=== PATIENT | female | born 1985 | race Caucasian/White ===

== ENCOUNTER 2020-02-10 14:47 | Emergency (ER) | payer OTHER, SELFPAY ==
[~2020-02-10] VITALS: Ht 160 cm; Wt 73.9 kg
[2020-02-10 14:53] VITALS: BP 123/96
[2020-02-10] MEDS ORDERED: NACL 0.9% 1,000 ML IV ONE (15:10)
[2020-02-10] MEDS ORDERED: ONDANSETRON 4 MG/2 ML VIAL IVP ONE (15:15)
[2020-02-10] MEDS ORDERED: MORPHINE SULFATE 4 MG/ML SYR IVP ONE ×2 (15:15→16:25)
[2020-02-10 15:35] LABS: BASOPHILS % (AUTO) 0.2 % (0.0-2.0); EOSINOPHILS % (AUTO) 0.1 % (0.0-4.0); HEMATOCRIT 40.3 % (36-48); HEMOGLOBIN 13.7 g/dL (12.0-16.0); LYMPHOCYTES # (AUTO) 0.9 K/uL (2.5-16.5); LYMPHOCYTES % (AUTO) 7.8 % (20.5-51.1); MEAN CORPUSCULAR HEMOGLOBIN 31 pg (27-31); MEAN CORPUSCULAR HGB CONC 34 g/dL (33-37); MEAN CORPUSCULAR VOLUME 92.3 fL (80-94); MONOCYTES # (AUTO) 0.7 K/uL (0.8-1.0); MONOCYTES % (AUTO) 5.9 % (1.7-9.3); NEUTROPHILS # (AUTO) 9.6 K/uL (1.8-7.7); PLATELET COUNT (AUTO) 248 K/uL (140-450); RED BLOOD CELL COUNT(AUTO) 4.37 MIL/uL (4.20-5.40); RED CELL DISTRIBUTION WIDTH 12.7 % (11.6-13.7); WHITE BLOOD COUNT (AUTO) 11.1 K/uL (4.8-10.8)
[2020-02-10 15:36] LABS: APPEARANCE,URINE SL CLOUDY (CLEAR); BILIRUBIN,URINE 2+ (NEGATIVE); BLOOD, URINE TRACE-I (NEGATIVE); COLOR,URINE ORANGE (YELLOW); LEUKOCYTE ESTERASE ,URINE NEGATIVE (NEGATIVE); NITRITE, URINE NEGATIVE (NEGATIVE); UGLUCOSE NEGATIVE (NEGATIVE)
[2020-02-10 16:00] LABS: ANION GAP 15.5 (8-16); CARBON DIOXIDE 24.3 mmol/L (21-32); CREATININE 0.8 mg/dL (0.6-1.3); POTASSIUM 3.8 mmol/L (3.5-5.1); TOTAL BILIRUBIN 1.7 mg/dL (0.0-1.0)
[2020-02-10] MEDS ORDERED: MORPHINE SULFATE 4 MG/ML SYR ONE (16:22)
[2020-02-10 16:42] LABS: PROTHROMBIN TIME 10.4 secs (10.8-13.4)
[2020-02-10] MEDS ORDERED: NACL 0.9% 500 ML IV ONE (17:40)
[2020-02-10 19:05] VITALS: BP 133/71
== END 2020-02-10 19:06 | disposition home or self-care (01) ==
LOC: MED 14:47 → EEVIPCON 14:47 → MED 19:06
DX: K86.1 Other chronic pancreatitis (principal); E86.0 Dehydration; R11.2 Nausea with vomiting, unspecified; Z90.49 Acquired absence of other specified parts of digestive tract; Z98.890 Other specified postprocedural states
CPT/HCPCS: 36415; 74177; 80053; 81003; 83690; 85025; 85610; 96361; 96374; 96375; 96376; 99284; J2270; J2405; J7030; Q9967; 81025

== ENCOUNTER 2020-02-14 15:42 | Inpatient (IN) | payer OTHER, SELFPAY ==
[~2020-02-14] VITALS: Ht 162.6 cm; Wt 74.4 kg
[~2020-02-14 15:42] MED LIST: IBUP-2213 PO
[2020-02-14 15:58] VITALS: BP 131/91
[2020-02-14] MEDS ORDERED: ONDANSETRON 4 MG/2 ML VIAL IVP ONE (16:05)
[2020-02-14] MEDS ORDERED: NACL 0.9% 1,000 ML IV ONE (16:05)
[2020-02-14] MEDS ORDERED: MORPHINE SULFATE 4 MG/ML SYR IVP ONE ×2 (16:05→18:30)
--- NOTE | 2020-02-14 16:10 | NUR ---
PT AMBULATED TO ER BED 07
--- NOTE | 2020-02-14 16:20 | NUR ---
DR DAVIDSON AT BEDSIDE EVALUATING PT.
--- NOTE | 2020-02-14 16:20 | NUR ---
C/O URQ ABD PAIN RADIATING TO UPPER RIGHT BACK 6/10 AND THROBBING ACCOMPANIED BY NAUSEA. PT AWAKE , ALERT, AFIBRILE , AMBULATORY WITH STEADY GAIT ,SCE, CBS BLF . HX: GALLBLADDER REMOVED, PARTIAL NECROTIC PANCREAS REMOVAL 2018 RX: NONE
[2020-02-14 16:31] LABS: BASOPHILS # (AUTO) 0.1 K/uL (0.00-0.22); BASOPHILS % (AUTO) 1.1 % (0.0-2.0); EOSINOPHILS # (AUTO) 0.2 K/uL (0-0.4); EOSINOPHILS % (AUTO) 4.4 % (0.0-4.0); HEMATOCRIT 39.5 % (36-48); HEMOGLOBIN 13.3 g/dL (12.0-16.0); LYMPHOCYTES # (AUTO) 0.8 K/uL (2.5-16.5); LYMPHOCYTES % (AUTO) 14.4 % (20.5-51.1); MEAN CORPUSCULAR HEMOGLOBIN 32 pg (27-31); MEAN CORPUSCULAR HGB CONC 34 g/dL (33-37); MEAN CORPUSCULAR VOLUME 93.6 fL (80-94); MONOCYTES # (AUTO) 0.3 K/uL (0.8-1.0); MONOCYTES % (AUTO) 5.8 % (1.7-9.3); NEUTROPHILS % (AUTO) 74.3 % (42.2-75.2); PLATELET COUNT (AUTO) 324 K/uL (140-450); RED BLOOD CELL COUNT(AUTO) 4.22 MIL/uL (4.20-5.40); RED CELL DISTRIBUTION WIDTH 12.7 % (11.6-13.7); WHITE BLOOD COUNT (AUTO) 5.4 K/uL (4.8-10.8)
--- NOTE | 2020-02-14 16:33 | NUR ---
LABS AT BEDSIDE.
[2020-02-14 16:47] LABS: CARBON DIOXIDE 28.3 mmol/L (21-32); CREATININE 0.8 mg/dL (0.6-1.3); POTASSIUM 3.3 mmol/L (3.5-5.1); TOTAL BILIRUBIN 0.9 mg/dL (0.0-1.0)
--- NOTE | 2020-02-14 17:16 | NUR ---
US AT BEDSIDE.
--- NOTE | 2020-02-14 19:05 | NUR ---
report given to lopez gerard.vs stable pt in bed .side rails up x1 and lock.
--- NOTE | 2020-02-14 19:46 | NUR ---
Dr. Isidro examining patient.
[2020-02-14] MEDS ORDERED: DOCUSATE SODIUM 250 MG GELCAP PO PRN (20:10)
[2020-02-14] MEDS ORDERED: ALBUTEROL 0.083% 2.5 MG/3 ML NEBU INH PRN (20:10)
[2020-02-14] MEDS ORDERED: guaiFENesin DM 200/20 MG-10 ML 10 ML UDC PO PRN (20:10)
[2020-02-14] MEDS ORDERED: cloNIDine 0.1 MG TAB PO PRN (20:10)
[2020-02-14] MEDS ORDERED: ALUMINUM HYD/MAG/SIMETHICONE 30 ML UDC PO PRN (20:10)
[2020-02-14] MEDS ORDERED: LORazepam 2 MG/ML VIAL IVP PRN (20:10)
[2020-02-14] MEDS ORDERED: ACETAMINOPHEN 325 MG TAB PO PRN (20:10)
[2020-02-14] MEDS ORDERED: ZOLPIDEM 5 MG TAB PO PRN (20:10)
[2020-02-14] MEDS ORDERED: MORPHINE SULFATE 2 MG/ML SYR IVP PRN (20:10)
[2020-02-14] MEDS ORDERED: MAGNESIUM OXIDE 400 MG TAB PO PRN (20:10)
[2020-02-14] MEDS ORDERED: ACETAMINOPHEN 650 MG SUPP RC PRN (20:10)
[2020-02-14] MEDS ORDERED: MAG SULF 2000 MG/WATER PREMIX 50 ML IV PRN (20:10)
[2020-02-14] MEDS ORDERED: diphenhydrAMINE 50 MG/ML VIAL IVP PRN (20:10)
[2020-02-14] MEDS ORDERED: IPRATROPIUM 0.02% 0.5 MG/2.5 ML NEBU INH PRN (20:10)
[2020-02-14] MEDS ORDERED: ONDANSETRON 4 MG/2 ML VIAL IVP PRN (20:10)
[2020-02-14] MEDS ORDERED: SODIUM PHOSPHATE 118 ML ENEM RC PRN (20:10)
[2020-02-14] MEDS ORDERED: BISACODYL 10 MG SUPP RC PRN (20:10)
--- NOTE | 2020-02-14 20:25 | NUR ---
Marlin crow in ED - 02/14/20 at 2032 by NAHUN Patient will be admitted to care of DR GUERRERO. Admited to [facility]. Will go to room 119A. Belongings list completed. Report to IWONA FARRIS.
--- NOTE | 2020-02-14 20:25 | NUR ---
Patient will be admitted to care of DR GUERRERO. Admited to [facility]. Will go to room 119A. Belongings list completed. Report to IWONA FARRIS.
--- NOTE | 2020-02-14 20:25 | NUR ---
RECEIVED PATIENT FROM ER VIA WHEELCHAIR IN STABLE CONDITION FOR CONTINUITY OF CARE. AAOX4. RESPIRATIONS EVEN, UNLABORED. SKIN ASSESSMENT COMPLETED. SKIN INTACT. SALINE LOCK TO RIGHT AC 20G PATENT/INTACT. MRSA SCREEN COMPLETED. ORIENTED PATIENT TO ROOM/STAFF AND CALL LIGHT. NO C/O PAIN. NO S/SX ACUTE DISTRESS AT THIS TIME. VITALS STABLE: BP 120/71 HR 85 RR 18 T 98.3 O2SAT 100%. SAFETY PRECAUTIONS IN PLACE. CALL LIGHT WITHIN REACH. WILL CONTINUE TO MONITOR.
[2020-02-14 21:14] VITALS: BP 120/71
--- NOTE | 2020-02-14 22:34 | NUR ---
PATIENT C/O ACHING ABDOMINAL PAIN 04/07. MEDICATED ORDERED. CALL LIGHT WITHIN REACH. WILL CONTINUE TO MONITOR.
--- NOTE | 2020-02-14 23:34 | NUR ---
REASSESSED PAIN LEVEL AT 2/10, TOLERABLE PAIN LEVEL FOR PATIENT. CALL LIGHT WITHIN REACH. WILL CONTINUE TO MONITOR.
--- NOTE | 2020-02-14 23:39 | NUR ---
PATIENT C/O INSOMNIA. MEDICATED ORDERED. PROVIDED LOW STIMULI ENVIRONMENT. PROVIDED EDUCATION REGARDING SLEEP HYGIENE. PATIENT VERBALIZED UNDERSTANDING. CALL LIGHT WITHIN REACH. WILL CONTINUE TO MONITOR.
[2020-02-15] VITALS: BP 105/72
--- NOTE | 2020-02-15 01:15 | NUR ---
MADE ROUNDS. PATIENT ASLEEP AND IN STABLE CONDITION. NO C/O PAIN. NO S/SX ACUTE DISTRESS. CALL LIGHT WITHIN REACH. WILL CONTINUE TO MONITOR.
--- NOTE | 2020-02-15 03:05 | NUR ---
PATIENT IS ASLEEP AND IN STABLE CONDITION. NO C/O PAIN. NO S/SX ACUTE DISTRESS. CALL LIGHT WITHIN REACH. WILL CONTINUE TO MONITOR.
--- NOTE | 2020-02-15 05:27 | NUR ---
PATIENT CONTINUES IN STABLE CONDITION. NO C/O PAIN. NO S/SX ACUTE DISTRESS. CALL LIGHT WITHIN REACH. WILL CONTINUE TO MONITOR.
[2020-02-15] MEDS: HYDROcodone/APAP 5/325 MG 1 TAB TAB PO PRN ×4 (06:12→21:51)
--- NOTE | 2020-02-15 06:12 | NUR ---
PATIENT C/O ACHING ABDOMINAL PAIN 04/07. MEDICATED ORDERED. PROVIDED EDUCATION REGARDING PAIN MANAGEMENT, PATIENT VERBALIZED UNDERSTANDING. CALL LIGHT WITHIN REACH. WILL CONTINUE TO MONITOR.
--- NOTE | 2020-02-15 06:33 | NUR ---
PATIENT HAS BEEN SCREENED AND CATEGORIZED MODERATE NUTRITION RISK. PATIENT WILL BE SEEN WITHIN 3-5 DAYS OF ADMISSION. 02/17/20-02/19/20 DINORA ZAMARRIPA MS, RDN
--- NOTE | 2020-02-15 07:16 | NUR ---
ENDORSED TO AM SHIFT NURSE FOR CONTINUITY OF CARE.
--- NOTE | 2020-02-15 07:16 | NUR ---
RECEIVED PATIENT FROM FOLEY ARTIST NURSE AT BEDSIDE FOR CONTINUITY OF CARE. AAOX4. PT AWAKE AND ALERT, RESPIRATIONS EVEN AND UNLABORED ON ROOM AIR. SKIN INTACT. SALINE LOCK TO RIGHT AC 20G PATENT/INTACT. UPDATED BOARD. PATIENT LAST MEDICATED FOR PAIN AT 0612. PT HAS NO COMPLAINTS AT THIS TIME. VERBALIZED PLAN OF CARE TO PATIENT, SHE VERBALIZED UNDERSTANDING. CALL LIGHT WITHIN REACH. WILL CONTINUE TO MONITOR.
[2020-02-15 07:32] LABS: ALBUMIN 3.3 g/dL (3.4-5.0); ANION GAP 11.8 (8-16); CARBON DIOXIDE 26.5 mmol/L (21-32); CREATININE 0.6 mg/dL (0.6-1.3); POTASSIUM 3.3 mmol/L (3.5-5.1); TOTAL BILIRUBIN 0.9 mg/dL (0.0-1.0)
[2020-02-15 08:00] VITALS: BP 123/85
[2020-02-15] MEDS: POTASSIUM CHLORIDE 10 MEQ TABER PO PRN (08:21)
--- NOTE | 2020-02-15 08:21 | NUR ---
PRN KDUR GIVEN FOR K LEVEL OF 3.3. PATIENT TOLERATED IT WELL. PAIN IS TOLERABLE AT THIS TIME. NO COMPLAINTS AT THIS TIME. CALL LIGHT WITHIN REACH, WILL CONTINUE TO MONITOR PATIENT.
--- NOTE | 2020-02-15 11:16 | NUR ---
PAIN MEDICATED FOR ABD PAIN PRN. PATIENT TOLERATED IT WELL. WILL CONTINUE TO MONITOR PATIENT.
[2020-02-15 16:00] VITALS: BP 118/76
--- NOTE | 2020-02-15 17:33 | NUR ---
PAIN MEDICATED FOR ABD PAIN PRN. PATIENT TOLERATED IT WELL. WILL CONTINUE TO MONITOR PATIENT.
--- NOTE | 2020-02-15 19:30 | NUR ---
RECEIVED PT AA0X4 , NID , ON SL - INTACT AND PATENT , NID , BERABLE PAIN SHE SAID AT THIS TIME , FULL LIQ. DIET - TOLERATED . SAFETY MEASURES IN PLACE - CALL LIGHT WITHIN REACH , AMBULATORY , POC DISCUSSED AND VERBALIZED UNDERSTANDING . WILL CONT. TO MONITOR.
--- NOTE | 2020-02-15 19:30 | NUR ---
REPORT GIVEN TO CREW LEADER NURSE FOR CONTINUITY OF CARE. PATIENT IN STABLE CONDITION.
--- NOTE | 2020-02-15 21:51 | NUR ---
C/O ABDL. PAIN - MEDICATED ORDERED . WILL CONT. TO MONITOR. CALL LIGHT WITHIN REACH.
[2020-02-16] VITALS: BP 114/76
--- NOTE | 2020-02-16 | NUR ---
MADE ROUNDS , SHE SAID PAIN IS BEARABLE AT THIS TIME. WILL CONT. TO MONITOR.
--- NOTE | 2020-02-16 02:00 | NUR ---
SLEEPING - CHEST RISE AND FALL EQUALLY.
--- NOTE | 2020-02-16 04:00 | NUR ---
MADE ROUNDS . NO S/S OF ACUTE DISTRESS NOTED AT THIS TIME. WILL CONT. TO MONITOR.
--- NOTE | 2020-02-16 06:00 | NUR ---
MADE ROUNDS , NO S/S OF ACUTE DISTRESS NOTED
[2020-02-16 06:49] LABS: BASOPHILS % (AUTO) 0.6 % (0.0-2.0); EOSINOPHILS # (AUTO) 0.2 K/uL (0-0.4); HEMATOCRIT 35.4 % (36-48); HEMOGLOBIN 12.1 g/dL (12.0-16.0); LYMPHOCYTES # (AUTO) 1.2 K/uL (2.5-16.5); LYMPHOCYTES % (AUTO) 27.2 % (20.5-51.1); MEAN CORPUSCULAR HEMOGLOBIN 32 pg (27-31); MEAN CORPUSCULAR HGB CONC 34 g/dL (33-37); MEAN CORPUSCULAR VOLUME 94.3 fL (80-94); MONOCYTES # (AUTO) 0.3 K/uL (0.8-1.0); MONOCYTES % (AUTO) 6.1 % (1.7-9.3); NEUTROPHILS # (AUTO) 2.7 K/uL (1.8-7.7); NEUTROPHILS % (AUTO) 62.1 % (42.2-75.2); PLATELET COUNT (AUTO) 263 K/uL (140-450); RED BLOOD CELL COUNT(AUTO) 3.76 MIL/uL (4.20-5.40); RED CELL DISTRIBUTION WIDTH 12.5 % (11.6-13.7); WHITE BLOOD COUNT (AUTO) 4.4 K/uL (4.8-10.8)
[2020-02-16 07:05] LABS: ALBUMIN 3.3 g/dL (3.4-5.0); ANION GAP 14.1 (8-16); CARBON DIOXIDE 26.2 mmol/L (21-32); CREATININE 0.6 mg/dL (0.6-1.3); POTASSIUM 4.3 mmol/L (3.5-5.1); TOTAL BILIRUBIN 0.8 mg/dL (0.0-1.0)
--- NOTE | 2020-02-16 07:28 | NUR ---
ENDORSED - PT - STABLE
--- NOTE | 2020-02-16 07:40 | NUR ---
RECEIVED PATIENT FROM LABORER MARINE TERMINAL NURSE FOR CONTINUITY OF CARE. PATIENT IS SLEEPING AT THIS TIME. NO SIGNS OF DISTRESS NOTED. RESPIRATIONS EVEN AND UNLABORED, ROOM AIR. VISIBLE CHEST RISE AND FALL NOTED. ON TELE MONITORING. ABDOMEN SOFT AND NONTENDER. SKIN WARM, DRY,AND INTACT. IV SITE RIGHT AC GAUGE 20, SALINE LOCK. IV IS FLUSHING WELL. PATIENT IS AMBULATORY. CONTINENT. UNIVERSAL FALL PRECAUTION IN PLACE. ON A FULL LIQUID DIET. STANDARD ISOLATION . BED IN LOW POSITION. CALL LIGHT IS WITHIN REACH. WILL CONTINUE TO MONITOR.
[2020-02-16 08:00] VITALS: BP 117/78
[2020-02-16] MEDS: HYDROcodone/APAP 5/325 MG 1 TAB TAB PO PRN ×4 (09:02→22:20)
--- NOTE | 2020-02-16 09:02 | NUR ---
GIVEN NORCO PO FOR PAIN 6/10 IN THE ABDOMEN. EXPLAINED MEDICATION. PATIENT VERBALIZED UNDERSTANDING. BED IN LOW POSITION. CALL LIGHT IS WITHIN REACH. WILL CONTINUE TO MONITOR.
--- NOTE | 2020-02-16 10:02 | NUR ---
REASSESSED PAIN. PATIENT STATED 2/10 ABDOMINAL PAIN THAT IS TOLERABLE. WILL CONTINUE TO MONITOR.
[2020-02-16] MEDS: DEXT 5% / LACT RING 1,000 ML IV SCH ×2 (10:34→18:10)
--- NOTE | 2020-02-16 10:35 | NUR ---
HANG D5LR AT A RATE 125 ML/HR.
--- NOTE | 2020-02-16 10:35 | NUR ---
PATIENT SIGNED CONSENT FORM FOR THE ERCP WITH MAC. DR. MCKEON HAS SEEN THE PATIENT.
--- NOTE | 2020-02-16 10:58 | NUR ---
DC PLANN[age] YRS OLD FEMALE PATIENT WAS ADMITTED FROM HOME WITH A DX OF ABDOMINAL PAIN. PT HAS A HX OF COMPLICATED CHOLECYSTITIS LAST YEAR . US OF THE GALLBLADDER SHOWED A SMALL REMNANT GALL BLADDER VERSUS CYSTIC DUCT STUMP CONTAIN SMALL GALLSTONES. CONSULTED WITH GI DR MCKEON ,THE PLAN IS TO PERFORM ERCP TODAY . DC PLAN PER MD RECOMMENDATION AND PT'S RESPONDING TO THE TREATMENT. CM TO FOLLOW Addendum: 02/17/20 at 1555 by Laura Lay CM DC PLANNING: DR MCKEON PERFORMED ENDOSCOPIC RETROGRADE CHOLANGIOGRAM WITH BALLOON SWEEPING OF THE CO,,EN BILE DUCT , CONTINUE MONITORING CLINICAL RESPONSE . DC PLANE TO GO HOME WHEN STABLE CM TO FOLLOW. Addendum: 02/18/20 at 1118 by Laura Lay DC PLANNING: H-PYLORIC NEGATIVE , ADVANCED DIET, AMBULATE TO BATHROOM TOLERATED WELL , TOLERABLE PAIN . DC PLAN AWAITING FOR MD ROUNDS . CM TO FOLLOW
--- NOTE | 2020-02-16 11:58 | NUR ---
PATIENT IS CURRENTLY SLEEPING COMFORTABLY AT THIS TIME. NO SIGNS OF DISTRESS NOTED. BED IN LOW POSITION. CALL LIGHT IS WITHIN REACH. WILL CONTINUE TO MONITOR.
--- NOTE | 2020-02-16 13:26 | NUR ---
Late entry. Confirmed with RN that 0.9 NS IV completed at 1720
--- NOTE | 2020-02-16 13:50 | NUR ---
OFF UNIT TO OR FOR SCHEDULED ERCP.
[2020-02-16] MEDS ORDERED: PROPOFOL 200 MG/20 ML VIAL IV ONE (14:31)
[2020-02-16] MEDS ORDERED: MIDAZOLAM 2 MG/2 ML VIAL ONE (14:31)
[2020-02-16] MEDS ORDERED: ONDANSETRON 4 MG/2 ML VIAL IVP PRN ×2 (15:25→15:30)
--- NOTE | 2020-02-16 15:57 | NUR ---
PATIENT IS BACK FROM ERCP. POST-OP VS WILL BE TAKEN. WILL CONTINUE TO MONITOR
[2020-02-16 16:00] VITALS: BP 125/86
--- NOTE | 2020-02-16 16:09 | NUR ---
GIVEN MORPHINE FOR 8/10 FOR ABDOMINAL PAIN/SURGICAL SITE PAIN. WILL REASSESS
[2020-02-16] MEDS: AMYLASE/LIPASE/PROTEASE 1 CAPDR PO SCH (16:57)
[2020-02-16] MEDS: SENNA 8.6 MG TAB PO SCH (16:58)
--- NOTE | 2020-02-16 16:58 | NUR ---
GIVEN SENNA AND PANCRELIPASE PO. EXPLAINED MEDICATION. PATIENT VERBALIZED UNDERSTANDING. BED IN LOW POSITION. CALL LIGHT IS WITHIN REACH. WILL CONTINUE TO MONITOR.
--- NOTE | 2020-02-16 17:43 | NUR ---
PATIENT IS EATING DINNER AT THIS TIME. NO SIGNS OF DISTRESS NOTED. BED IN LOW POSITION. CALL LIGHT IS WITHIN REACH. WILL CONTINUE TO MONITOR.
--- NOTE | 2020-02-16 18:00 | NUR ---
GIVEN NORCO FOR PAIN 06/07 ABDOMINAL. EXPLAINED MEDICATION. WILL REASSESS PAIN
--- NOTE | 2020-02-16 18:42 | NUR ---
PATIENT C/O JOSHI CATHETER LEAKING. DEFLATED BALLOON TO 7ML. ADVANCED CATHETER AND INFLATED WITH 10 ML SALINE. PATIENT TOLERATED WELL. Addendum: 02/16/20 at 1910 by Princess Jessika Martinez RN WRONG ENTRY. PLEASE DISREGARD.
--- NOTE | 2020-02-16 19:09 | NUR ---
ENDORSED PATIENT TO THE BUGGYMAN NURSE FOR CONTINUITY OF CARE. PATIENT IS IN STABLE CONDITION.
--- NOTE | 2020-02-16 19:10 | NUR ---
RECEIVED PATIENT IN STABLE CONDITION FROM AM SHIFT NURSE FOR CONTINUITY OF CARE. RESPIRATIONS EVEN, UNLABORED. NO C/O PAIN. NO S/SX ACUTE DISTRESS. IV SITE NOTED TO RIGHT AC 20G INTACT, INFUSING FLUIDS WELL. REVIEWED PLAN OF CARE WITH PATIENT. CALL LIGHT WITHIN REACH. WILL CONTINUE TO MONITOR.
--- NOTE | 2020-02-16 19:30 | NUR ---
IV SITE TO RIGHT AC DISCONTINUED WITH MINIMAL BLEEDING AND CANNULA INTACT. NEW IV SITE TO LEFT WRIST 24G STARTED USING ASEPTIC TECHNIQUE WITH GOOD BLOOD RETURN. FLUIDS INFUSING WELL. NO DISCOMFORT NOTED. CALL LIGHT WITHIN REACH. WILL CONTINUE TO MONITOR.
--- NOTE | 2020-02-16 21:00 | NUR ---
PATIENT IS AWAKE WITH NO C/O PAIN AT THIS TIME. NO S/SX ACUTE DISTRESS. CALL LIGHT WITHIN REACH. WILL CONTINUE TO MONITOR.
--- NOTE | 2020-02-16 22:20 | NUR ---
PATIENT C/O ACHING ABDOMINAL PAIN 05/07. MEDICATED ORDERED. REPOSITIONED FOR COMFORT. CALL LIGHT WITHIN REACH. WILL CONTINUE TO MONITOR.
--- NOTE | 2020-02-16 23:20 | NUR ---
REASSESSED PAIN LEVEL 0/10. PATIENT ASLEEP. NO S/SX ACUTE DISTRESS. CALL LIGHT WITHIN REACH. WILL CONTINUE TO MONITOR.
[2020-02-17] VITALS: BP 106/71
--- NOTE | 2020-02-17 01:26 | NUR ---
ASLEEP AND IN STABLE CONDITION. NO C/O PAIN. NO S/SX ACUTE DISTRESS. CALL LIGHT WITHIN REACH. WILL CONTINUE TO MONITOR.
[2020-02-17] MEDS: DEXT 5% / LACT RING 1,000 ML IV SCH ×2 (02:46→10:10)
--- NOTE | 2020-02-17 03:03 | NUR ---
PATIENT CONTINUES IN STABLE CONDITION. ASLEEP. NO C/O PAIN. NO S/SX ACUTE DISTRESS. SAFETY PRECAUTIONS IN PLACE. CALL LIGHT WITHIN REACH. WILL CONTINUE TO MONITOR.
--- NOTE | 2020-02-17 04:39 | NUR ---
RECEIVED REPORT ON PT FROM MARIANA FARRIS.PT IS SEEPING W/O ANY S/S OF ANY DISTRESS. CALL LIGHT WITHIN REACH.WILL CONTINUE MONITORING.
--- NOTE | 2020-02-17 06:56 | NUR ---
SLEPT WELL.NO C/O PAIN AND/OR DISCOMFORT AT THIS TIME.CONDITION STABLE.IVF IS IN PROGRESS.
--- NOTE | 2020-02-17 07:58 | NUR ---
DID NOT RECEIVE REPORT FROM NIGHT NURSE AMRIANA. ARRIVED LATE ON THE UNIT DUE TO STAFFING ISSUES. PT IN STABLE CONDITION, NO DISTRESS NOTED. RESPIRATIONS EVEN AND UNLABORED ON ROOM AIR. SKIN INTACT. IV SITE IN PLACE PATENT AND ASYMPTOMATIC INFUSING PER ORDER. SAFETY MEASURES IN PLACE, CALL LIGHT WITHIN REACH. BED IN LOW POSITION. WILL CONTINUE TO MONITOR.
[2020-02-17] MEDS: SENNA 8.6 MG TAB PO SCH ×3 (08:32→16:17)
[2020-02-17] MEDS: AMYLASE/LIPASE/PROTEASE 1 CAPDR PO SCH ×3 (08:32→16:17)
--- NOTE | 2020-02-17 08:39 | NUR ---
MEDICATIONS ADMINISTERED PER ORDER. PT TOLERATED WELL, NO DISTRESS NOTED. PT REPORTS PAIN OF 4, DENIES NEEDING MEDICATION AT THE TIME. WILL CONTINUE TO MONITOR.
--- NOTE | 2020-02-17 12:45 | NUR ---
PT RESTING IN BED, AROUSABLE BY VOICE. MONET MED ADMINISTERED. PT STATES DOCTOR HAS SPOKEN TO HER REGARDING D/C POSSIBLY TONIGHT.
--- NOTE | 2020-02-17 14:54 | NUR ---
02/17/20 RD INITIAL ASSESSMENT COMPLETED PLEASE REFER TO NUTRITION ASSESSMENT UNDER CARE ACTIVITY FOR ESTIMATED NUTRITIONAL NEEDS. 1. CONTINUE REGULAR DIET TOLERATED 2. RECOMMEND ENSURE CLEAR TID IF PO INTAKE <50% 3. ENCOURAGE PO INTAKE 4. RD TO FOLLOW-UP 2-3 DAYS, HIGH RISK LEXIS JAY, RD
[2020-02-17] MEDS ORDERED: ACET-9525 PO (15:50)
--- NOTE | 2020-02-17 16:22 | NUR ---
MODEL MAKER FIREARMS AT BEDSIDE FOR BLOOD DRAW
[2020-02-17 16:30] VITALS: BP 104/63
[2020-02-17 16:30] LABS: BASOPHILS % (AUTO) 0.1 % (0.0-2.0); EOSINOPHILS % (AUTO) 0.4 % (0.0-4.0); HEMATOCRIT 37.5 % (36-48); HEMOGLOBIN 12.7 g/dL (12.0-16.0); LYMPHOCYTES # (AUTO) 0.4 K/uL (2.5-16.5); LYMPHOCYTES % (AUTO) 3.9 % (20.5-51.1); MEAN CORPUSCULAR HEMOGLOBIN 32 pg (27-31); MEAN CORPUSCULAR HGB CONC 34 g/dL (33-37); MEAN CORPUSCULAR VOLUME 93.9 fL (80-94); MONOCYTES # (AUTO) 0.6 K/uL (0.8-1.0); MONOCYTES % (AUTO) 5.7 % (1.7-9.3); NEUTROPHILS # (AUTO) 9.8 K/uL (1.8-7.7); NEUTROPHILS % (AUTO) 89.9 % (42.2-75.2); PLATELET COUNT (AUTO) 297 K/uL (140-450); RED CELL DISTRIBUTION WIDTH 12.7 % (11.6-13.7); WHITE BLOOD COUNT (AUTO) 10.9 K/uL (4.8-10.8)
--- NOTE | 2020-02-17 16:32 | NUR ---
REPORTED TO DR. ORDONEZ THAT PT HR IS 124 AND TEMP IS 101.[address] ORDONEZ WILL CANCEL D/C.
--- NOTE | 2020-02-17 16:33 | NUR ---
PT DENIES COUGH AND SOB.
--- NOTE | 2020-02-17 16:38 | NUR ---
PT DENIES PAIN
[2020-02-17 16:54] LABS: ALBUMIN 3.3 g/dL (3.4-5.0); ANION GAP 12.8 (8-16); CARBON DIOXIDE 25.7 mmol/L (21-32); CREATININE 0.8 mg/dL (0.6-1.3); POTASSIUM 3.5 mmol/L (3.5-5.1); TOTAL BILIRUBIN 3.6 mg/dL (0.0-1.0)
--- NOTE | 2020-02-17 19:08 | NUR ---
REPORT TO EZEQUIEL RN, TRANSFER OF CARE AT THIS TIME.
--- NOTE | 2020-02-17 19:10 | NUR ---
RECEIVED FROM AM RN IN BED SLEEPING. WILL CONTINUE WITH CURRENT CARE FOR THE NIGHT. CALL LIGHT WITH IN REACH.
--- NOTE | 2020-02-17 20:33 | NUR ---
PT. AWAKE AT THIS TIME. INTRODUCED MYSELF. ABLE TO VERBALIZE NEEDS WELL IN [place]. STATED SHE IS "WEAK " . ENCOURAGED TO SLEEP AND REST AND SEE IF MAYBE TOMORROW MD WILL DISCHARGE HER . PT. EAGER TO GO HOME.
--- NOTE | 2020-02-17 22:00 | NUR ---
PT. IS STILL AWAKE AND WATCHING SOMETHING ON HER CELL PHONE. ENCOURAGED TO SLEEP AND REST. NO COMPLAINTS DONE. DENIES ANY PAIN. AFEBRILE.
[2020-02-18] VITALS: BP 103/63
--- NOTE | 2020-02-18 | NUR ---
CHECKED ON PT. AFEBRILE. NO COMPLAINTS DONE. CALL LIGHT WITH IN REACH.
--- NOTE | 2020-02-18 03:24 | NUR ---
PT. WOKE UP TO GO RESTROOM. DENIES ANY PAIN AT THIS TIME. DENIES ANY FEVER. CALL LIGHT WITH IN REACH. PT. A/O X 4. ROM X 4. ENCOURAGED TO USE CALL LIGHT FOR ANY HELP SHE MIGHT NEED OR IF IN PAIN.
--- NOTE | 2020-02-18 05:45 | NUR ---
PT. SLEEPING. ABLE TO WAKE UP EASILY RT RE:CHECKED TEMPERATURE IF WITH FEVER. NO FEVER AT THIS TIME. TEMP IS 98.5 PER TEMPORAL SCAN. NO FEVER THE WHOLE EDGE STRIPPER.
--- NOTE | 2020-02-18 07:00 | NUR ---
RECEIVED REPORT FROM SPECIAL ASSEMBLIES SUPERVISOR NURSE EZEQUIEL-RN. PT RESTING IN BED, AOX4, ON ROOM AIR WITH LEFT WRIST #24/SL. DISCUSSED PLAN OF CARE AND PT VERBALIZED UNDERSTANDING. NO S/S OF RESPIRATORY DISTRESS OR DISCOMFORT NOTED AT THIS TIME. WILL CONTINUE TO MONITOR.
[2020-02-18 07:17] LABS: HEMATOCRIT 38.6 % (36-48); HEMOGLOBIN 12.9 g/dL (12.0-16.0); MEAN CORPUSCULAR HEMOGLOBIN 32 pg (27-31); MEAN CORPUSCULAR HGB CONC 34 g/dL (33-37); MEAN CORPUSCULAR VOLUME 94.8 fL (80-94); PLATELET COUNT (AUTO) 276 K/uL (140-450); RED BLOOD CELL COUNT(AUTO) 4.08 MIL/uL (4.20-5.40); WHITE BLOOD COUNT (AUTO) 5.7 K/uL (4.8-10.8)
[2020-02-18 07:52] LABS: ALBUMIN 3.4 g/dL (3.4-5.0); ANION GAP 13.7 (8-16); CARBON DIOXIDE 25.5 mmol/L (21-32); CREATININE 0.7 mg/dL (0.6-1.3); POTASSIUM 3.2 mmol/L (3.5-5.1); TOTAL BILIRUBIN 1.8 mg/dL (0.0-1.0)
[2020-02-18] MEDS: AMYLASE/LIPASE/PROTEASE 1 CAPDR PO SCH ×2 (07:59→12:28)
--- NOTE | 2020-02-18 07:59 | NUR ---
SCHEDULED MEDICATION PANCREASE GIVEN WITH FOOD. PT TOLERATED WELL. NO S/S OF RESPIRATORY DISTRESS OR DISCOMFORT NOTED AT THIS TIME. WILL CONTINUE TO MONITOR.
[2020-02-18] MEDS: SENNA 8.6 MG TAB PO SCH ×2 (09:00→12:29)
--- NOTE | 2020-02-18 09:00 | NUR ---
PT REFUSED S[place] BECAUSE "ALREADY HAD A BOWEL MOVEMENT." WHEN ASKED THE CONSISTENCY SHE SAID, "IT WAS LIQUID WITH SOME SOLIDS."
[2020-02-18] MEDS: POTASSIUM CHLORIDE 10 MEQ TABER PO PRN (09:42)
--- NOTE | 2020-02-18 09:42 | NUR ---
POTASSIUM 3.2 LOW AND WAS GIVEN K-FABBY. PT TOLERATED WELL. NO S/S OF RESPIRATORY DISTRESS OR DISCOMFORT NOTED AT THIS TIME. WILL CONTINUE TO MONITOR.
[2020-02-18 10:56] LABS: PLATELET COUNT,MANUAL 276 K/uL (150-450)
[2020-02-18 10:57] LABS: EOSINOPHILS # (AUTO) 0.2 K/uL (0-0.4); LYMPHOCYTES # (AUTO) 0.6 K/uL (2.5-16.5); MONOCYTES # (AUTO) 0.7 K/uL (0.8-1.0); NEUTROPHILS # (AUTO) 4.2 K/uL (1.8-7.7)
--- NOTE | 2020-02-18 11:00 | NUR ---
PT RESTING IN BED. NO S/S OF RESPIRATORY DISTRESS OR DISCOMFORT NOTED AT THIS TIME. WILL CONTINUE TO MONITOR.
--- NOTE | 2020-02-18 12:28 | NUR ---
SCHEDULED MEDICATION PANCREASE GIVEN WITH FOOD. PT TOLERATED WELL. NO S/S OF RESPIRATORY DISTRESS OR DISCOMFORT NOTED AT THIS TIME. WILL CONTINUE TO MONITOR.
--- NOTE | 2020-02-18 13:00 | NUR ---
PT CONTINUES TO REFUSE MEDICATION. NO S/S OF RESPIRATORY DISTRESS OR DISCOMFORT NOTED AT THIS TIME. WILL CONTINUE TO MONITOR.
--- NOTE | 2020-02-18 15:00 | NUR ---
PT RESTING IN BED. NO S/S OF RESPIRATORY DISTRESS OR DISCOMFORT NOTED AT THIS TIME. WILL CONTINUE TO MONITOR.
--- NOTE | 2020-02-18 17:00 | NUR ---
PT RESTING IN BED. NO S/S OF RESPIRATORY DISTRESS OR DISCOMFORT NOTED AT THIS TIME. WILL CONTINUE TO MONITOR.
[2020-02-18 17:18] VITALS: BP 102/66
--- NOTE | 2020-02-18 17:40 | NUR ---
PT SIGNED DISCHARGE PAPERWORK, IV REMOVED CATHETER INTACT, ID BANDS REMOVED.
--- NOTE | 2020-02-18 17:50 | NUR ---
PT WAS ESCORTED TO LOBBY. PT WAS ABLE TO WALK. PT STABLE AT THIS TIME.
== END 2020-02-18 17:50 | disposition home or self-care (01) ==
LOC: MED 15:42 → MTU 19:52 → EEVIPCON 19:52
PROVIDERS: ADMIT Internal Medicine Pulmonary Disease; ATTEND Internal Medicine Pulmonary Disease
PROC: BF101ZZ Fluoroscopy of Bile Ducts using Low Osmolar Contrast (ICD-10-PCS; 2020-02-16)
PROC: 0DB68ZX Excision of Stomach, Via Natural or Artificial Opening Endoscopic, Diagnostic (ICD-10-PCS; 2020-02-16)
PROC: 0F798ZZ Dilation of Common Bile Duct, Via Natural or Artificial Opening Endoscopic (ICD-10-PCS; principal; 2020-02-16 14:00)
DX: K80.00 Calculus of gallbladder with acute cholecystitis without obstruction (principal); Z90.49 Acquired absence of other specified parts of digestive tract
CPT/HCPCS: 36415; 71045; 74330; 76705; 80053; 81025; 82150; 82948; 83690; 85025; 86677; 87081; 93005; 96361; 96374; 96375; 99285; C1769; C1773; J2250; J2270; J2405; J2704; Q0092